=== PATIENT | female | born 1995 | race American Indian/Alaskan Native ===

== ENCOUNTER 2022-08-16 00:10 | Inpatient (IN) | payer BC ==
[~2022-08-16 00:10] MED LIST: Acetaminophen 325 MG Tab PO PRN; Carboprost Tromethamine 250 MCG/1 ML Amp IM PRN; Lidocaine 1% 30 ML SDV INJECT PRN; Misoprostol 25 MCG (1/4 of 100 MCG) Tab PO PRN; Misoprostol 400 MCG (4 X 100 MCG TAB) RECTAL PRN; Ondansetron 4 MG/2 ML SDV IVPUSH PRN; Oxytocin/Normal Saline 30 UNIT/500 ML BAG IV SCH; Tranexamic Acid 1,000 MG in Sodium Chloride 0.9% 100 ML IV PRN
[2022-08-16] MEDS ORDERED: Misoprostol 25 MCG (1/4 of 100 MCG) Tab VAG PRN (00:59)
[2022-08-16] MEDS ORDERED: Methylergonovine 0.2 MG/1 ML Amp IM PRN (06:00)
[2022-08-16] MEDS ORDERED: Lactated Ringers 1,000 ML IV SCH (06:00)
[2022-08-16] MEDS: Oxytocin/Normal Saline 30 UNIT/500 ML BAG IV SCH ×2 (07:27→21:25)
[2022-08-16] MEDS: Lactated Ringers 1,000 ML IV SCH ×3 (07:28→18:40)
[2022-08-16] MEDS: Sodium Chloride 0.9% 10 ML Syringe FLUSH SCH (09:00)
[2022-08-16] MEDS ORDERED: Nalbuphine 20 MG/1 ML Amp IM ONE (14:50)
[2022-08-16] MEDS ORDERED: Acetaminophen 325 MG Tab PO PRN (21:23)
[2022-08-16] MEDS ORDERED: Sodium Chloride 0.9% 10 ML Syringe FLUSH PRN (21:23)
[2022-08-16] MEDS ORDERED: Benzocaine/Menthol 20%-0.5% Spray 78 GM Cannister TOP PRN (21:23)
[2022-08-16] MEDS ORDERED: Oxytocin 10 Units/1 ML SDV IM PRN (21:23)
[2022-08-16] MEDS ORDERED: Simethicone 80 MG Tab.Chew PO PRN (21:23)
[2022-08-16] MEDS ORDERED: Witch Hazel Medicated Pads 100/Jar TOP PRN (21:25)
[2022-08-17] MEDS: Ibuprofen 800 MG Tab PO PRN ×3 (01:31→21:03)
[2022-08-17] MEDS: Sodium Chloride 0.9% 10 ML Syringe FLUSH SCH ×3 (03:56→21:03)
[2022-08-17] MEDS: Docusate Sodium 100 MG Cap PO SCH ×2 (13:24→21:03)
[2022-08-17] MEDS: Prenatal Multivitamin with Calcium/Folic Acid/Iron Tab PO SCH (13:30)
[2022-08-18] MEDS: Docusate Sodium 100 MG Cap PO SCH (08:49)
[2022-08-18] MEDS: Ibuprofen 800 MG Tab PO PRN (08:50)
[2022-08-18] MEDS: Prenatal Multivitamin with Calcium/Folic Acid/Iron Tab PO SCH (08:50)
== END 2022-08-18 11:22 | disposition home or self-care (01) | DRG 560 ==
LOC: DL.OB 00:10 → OBSVTOIN 20:28
PROVIDERS: ADMIT Family Medicine; ATTEND Family Medicine
PROC: 10E0XZZ Delivery of Products of Conception, External Approach (ICD-10-PCS; principal; 2022-08-16)
PROC: 10907ZC Drainage of Amniotic Fluid, Therapeutic from Products of Conception, Via Natural or Artificial Opening (ICD-10-PCS; 2022-08-16)
PROC: 0KQM0ZZ Repair Perineum Muscle, Open Approach (ICD-10-PCS; 2022-08-16)
PROC: 3E0P7VZ Introduction of Hormone into Female Reproductive, Via Natural or Artificial Opening (ICD-10-PCS; 2022-08-16)
PROC: 3E0R3BZ Introduction of Anesthetic Agent into Spinal Canal, Percutaneous Approach (ICD-10-PCS; 2022-08-16)
DX: O24.420 Gestational diabetes mellitus in childbirth, diet controlled (principal); Z3A.39 39 weeks gestation of pregnancy; Z37.0 Single live birth; O70.1 Second degree perineal laceration during delivery; O77.0 Labor and delivery complicated by meconium in amniotic fluid; Z20.822 Contact with and (suspected) exposure to COVID-19
CPT/HCPCS: 36415; 59409; 82947; 85027; A9270-GY; J2300; J2590; J7120; U0002

== ENCOUNTER 2024-05-04 07:44 | Inpatient (IN) | payer BC ==
[2024-05-04] MEDS ORDERED: Sodium Chloride 0.9% 10 ML Syringe FLUSH PRN (07:50)
[2024-05-04] MEDS ORDERED: Misoprostol 400 MCG (4 X 100 MCG TAB) RECTAL PRN (07:50)
[2024-05-04] MEDS ORDERED: Carboprost Tromethamine 250 MCG/1 ML Amp IM PRN (07:50)
[2024-05-04] MEDS ORDERED: Tranexamic Acid 1,000 MG in Sodium Chloride 0.9% 100 ML IV PRN (07:50)
[2024-05-04] MEDS ORDERED: Methylergonovine 0.2 MG/1 ML Amp IM PRN (07:50)
[2024-05-04] MEDS ORDERED: Misoprostol 25 MCG (1/4 of 100 MCG) Tab VAG SCH (08:00)
[2024-05-04] MEDS ORDERED: Oxytocin/Normal Saline 30 UNIT/500 ML BAG IV SCH (08:00)
[2024-05-04 08:16] LABS: HEMATOCRIT 38.1 % (37.0-47.0); HEMOGLOBIN 13.1 g/dL (12.0-16.0); LYMPHOCYTES PERCENT AUTO 21.6 % (20.5-50.1); MEAN CORPUSCULAR HEMOGLOBIN 31.1 pg (27.0-34.0); MEAN CORPUSCULAR HGB CONC 34.4 g/dL (33.0-35.0); MEAN CORPUSCULAR VOLUME 90.5 fL (80-100); MONOCYTES PERCENT AUTO 6.7 % (2-8); NEUTROPHILS PERCENT AUTO 70.7 % (42.2-75.2); PLATELET COUNT,PLT 182 10^3/uL (150-450); RED BLOOD CELL COUNT 4.21 10^6/uL (4.2-5.4); WHITE BLOOD CELL COUNT,WBC 7.4 10^3/uL (5.0-10.0)
[2024-05-04] MEDS: Lactated Ringers 1,000 ML IV SCH (10:25)
[2024-05-04] MEDS: Oxytocin/Normal Saline 30 UNIT/500 ML BAG IV SCH (10:27)
[2024-05-04] MEDS: Ondansetron 4 MG/2 ML SDV IVPUSH PRN (14:25)
[2024-05-04] MEDS: Lactated Ringers 1,000 ML IV ONE (14:47)
[2024-05-04] MEDS ORDERED: Phenylephrine HCl In 0.9% NaCl 1 MG/10 ML Syringe IVPUSH PRN (15:13)
[2024-05-04] MEDS ORDERED: ePHEDrine 50 MG/ML SDV IVPUSH PRN (15:13)
[2024-05-04] MEDS ORDERED: Ropivacaine 200 MG in Premix Bag 1 BAG EPIDUR SCH (15:15)
[2024-05-04] MEDS ORDERED: Acetaminophen 325 MG Tab PO PRN (16:17)
[2024-05-04] MEDS ORDERED: Simethicone 80 MG Tab.Chew PO PRN (16:17)
[2024-05-04] MEDS: Benzocaine/Menthol 20%-0.5% Spray 78 GM Cannister TOP PRN (17:57)
[2024-05-04] MEDS: Witch Hazel Medicated Pads 100/Jar TOP PRN (17:58)
[2024-05-04] MEDS: Ibuprofen 800 MG Tab PO SCH (17:58)
[2024-05-04] MEDS: Lidocaine 1% 30 ML SDV INJECT ONE (20:17)
[2024-05-05] MEDS: Docusate Sodium 100 MG Cap PO PRN (08:22)
[2024-05-05] MEDS: Prenatal Multivitamin with Calcium/Folic Acid/Iron Tab PO SCH (08:22)
[2024-05-05 17:34] LABS: HEMATOCRIT 36.8 % (37.0-47.0); HEMOGLOBIN 12.3 g/dL (12.0-16.0); MEAN CORPUSCULAR HEMOGLOBIN 30.8 pg (27.0-34.0); MEAN CORPUSCULAR HGB CONC 33.4 g/dL (33.0-35.0); MEAN CORPUSCULAR VOLUME 92.2 fL (80-100); RED BLOOD CELL COUNT 3.99 10^6/uL (4.2-5.4); WHITE BLOOD CELL COUNT,WBC 8.9 10^3/uL (5.0-10.0)
[2024-05-05] MEDS: Measles, Mumps & Rubella Vaccine 0.5 ML SDV SUBCUT ONE (17:42)
== END 2024-05-05 18:00 | disposition home or self-care (01) | DRG 560 ==
LOC: DL.OBCHECK 07:44 → DL.OB 07:48 → OBSVTOIN 15:44
PROVIDERS: ADMIT Family Medicine; ATTEND Family Medicine
PROC: 10E0XZZ Delivery of Products of Conception, External Approach (ICD-10-PCS; principal; 2024-05-04)
PROC: 3E0P7VZ Introduction of Hormone into Female Reproductive, Via Natural or Artificial Opening (ICD-10-PCS; 2024-05-04)
PROC: 0HQ9XZZ Repair Perineum Skin, External Approach (ICD-10-PCS; 2024-05-04)
PROC: 3E0R3BZ Introduction of Anesthetic Agent into Spinal Canal, Percutaneous Approach (ICD-10-PCS; 2024-05-04)
PROC: 00HU33Z Insertion of Infusion Device into Spinal Canal, Percutaneous Approach (ICD-10-PCS; 2024-05-04)
PROC: 10907ZC Drainage of Amniotic Fluid, Therapeutic from Products of Conception, Via Natural or Artificial Opening (ICD-10-PCS; 2024-05-04)
DX: O24.420 Gestational diabetes mellitus in childbirth, diet controlled (principal); Z37.0 Single live birth; O77.0 Labor and delivery complicated by meconium in amniotic fluid; O70.0 First degree perineal laceration during delivery; Z3A.39 39 weeks gestation of pregnancy
CPT/HCPCS: 36415; 51701; 59409; 82947; 85025; 85027; 90471; 90707; A9270-GY; C1729; J2405; J2590; J7120